=== PATIENT | male | born 1970 | race Caucasian/White ===

== ENCOUNTER 2017-01-06 18:16 | Emergency (ER) | payer OTHER ==
--- NOTE | 2017-01-06 20:30 | RAD ---
INDICATION: Right toe injury COMPARISON: None TECHNIQUE: AP, lateral, and oblique views were obtained. FINDINGS: There is a minimally distracted intra-articular fracture involving the middle phalanx fourth toe. No other fractures are evident. There is mild associated soft tissue swelling. IMPRESSION: FRACTURE MIDDLE PHALANX FOURTH TOE
[2017-01-06 20:48] VITALS: BP 128/82
--- NOTE | 2017-01-06 21:58 | UC ---
Lower Extremity/Ankle HPI - HPI Summary HPI Summary: Patient presents to the with CC of right fourth toe injury while stubbing on a bathtub 3 hours prior to arrival. Denies numbness or tingling. Denies temperature changes. There is ecchymosis throughout the toe. No other pain or symptoms at this time. Pain is 2/10, throbbing and worse with ambulation. - History of Current Complaint Chief Complaint: UCLowerExtremity Stated Complaint: FOOT INJURY Time Seen by Provider: 01/06/17 20:12 Hx Obtained From: Patient Onset/Duration: Sudden Onset Severity Initially: Moderate Severity Currently: Moderate Pain Intensity: 3 Pain Scale Used: 0-10 Numeric Aggravating Factor(s): Standing, Ambulation Alleviating Factor(s): Rest, Elevation Able to Bear Weight: Yes - Risk Factors Gout Risk Factors: Negative DVT Risk Factors: Negative Septic Arthritis Risk Factor: Negative - Allergies/Home Medications Allergies/Adverse Reactions: Allergies Allergy/AdvReac Type Severity Reaction Status Date / Time No Known Allergies Allergy Verified 01/06/17 18:58 PMH/Surg Hx/FS Hx/Imm Hx Previously Healthy: Yes - Surgical History Surgical History: Yes Surgery Procedure, Year, and Place: inguinal hernia repair 2010. vasectomy 2009. appendectomy 2009 - Social History Occupation: Employed Full-time Lives: With Family Alcohol Use: None Substance Use Type: None Substance Use Comment - Amount & Last Used: tramadol Smoking Status (MU): Former Smoker Type: Cigarettes Have You Smoked in the Last Year: No When Did the Patient Quit Smoking/Using Tobacco: 2008 Review of Systems Constitutional: Negative Skin: Bruising Eyes: Negative Respiratory: Negative Cardiovascular: Negative Motor: Decreased ROM Neurovascular: Negative Musculoskeletal: Arthralgia Neurological: Negative Psychological: Negative Is Patient Immunocompromised?: No All Other Systems Reviewed And Are Negative: Yes Physical Exam Triage Information Reviewed: Yes Appearance: Well-Appearing, Well-Nourished Vital Signs: Initial Vital Signs Temp 97.9 F 01/06/17 18:55 Pulse 61 01/06/17 18:55 Resp 12 01/06/17 18:55 BP 122/76 01/06/17 18:55 Pulse Ox 100 01/06/17 18:55 Vital Signs Reviewed: Yes Eye Exam: Normal Eyes: Positive: Conjunctiva Clear Neck exam: Normal Neck: Positive: Supple, No Lymphadenopathy Respiratory Exam: Normal Respiratory: Positive: Chest non-tender, Lungs clear Cardiovascular Exam: Normal Cardiovascular: Positive: RRR Musculoskeletal Exam: Normal Musculoskeletal: Positive: Strength Intact, ROM Intact, ROM Limited @ - 4th toe on right foot Neurological Exam: Normal Neurological: Positive: Alert Psychological: Positive: Normal Response To Family Skin Exam: Normal Skin: Positive: significant lesion(s) - 4th toe with ecchymosis Lower Extremity Course/Dx - Course Course Of Treatment: xray positive for 4th right toe phalynx fracture. treatment options discussed. He prefers to not have the post op shoe. He is given instruction to have igor tape x 4 weeks with extension if needed. He is given ortho follow up. - Differential Dx/Diagnosis Differential Diagnosis/HQI/PQRI: Contusion, Fracture (Closed), Fracture (Open) Provider Diagnoses: Fourth Phalynx Fracture of the Right Toe Discharge - Discharge Plan Condition: Stable Disposition: HOME Patient Education Materials: Toe Fracture (ED) Referrals: Brando Mcneill MD [Primary Care Provider] - Belkys Sanchez MD [Medical Doctor] - Additional Instructions: Continue with taping the toe for 4 weeks. If you are still experiencing pain or imbalance at 4 weeks - continue with taping for an additional 2 weeks. Follow up with orthopedic physician in 5-7 days. If numbness, tingling, decreased sensation, increased pain, temperature changes or pallor noted in toes, come back to ER immediately. Rest the involved area, but not too long. You may need to be off your injury for some time to allow for healing, however excessive immobilization of joints can lead to stiffness and delay healing time. Early mobilization is encouraged if it is pain-free. Ice. Not directly on the skin. Cover with a towel. Apply ice no more than 30 minutes at a time Elevate: Try to elevate the injured area above the heart whenever possible. Ibuprofen 600mg three times daily as needed for pain and inflammation
== END 2017-01-06 20:43 | disposition home or self-care (01) ==
LOC: UCEAST 18:16
DX: S92.911A Unspecified fracture of right toe(s), initial encounter for closed fracture (principal); Z87.891 Personal history of nicotine dependence; W22.8XXA Striking against or struck by other objects, initial encounter; Y92.9 Unspecified place or not applicable
CPT/HCPCS: 99211; G0463